=== PATIENT | female | born 1990 | race Two or more races ===

== ENCOUNTER 2019-10-10 14:26 | Emergency (ER) | payer MEDICAID, OTHER ==
[2019-10-10 14:44] LABS: Urine WBC None Seen /hpf (0 - 5)
[2019-10-10 15:07] LABS: Basophils # (auto) 0.1 10 ^3/uL (0-0.2); Basophils % (auto) 0.6 % (0.0-2.0); Eosinophils # (auto) 0.2 10 ^3/uL (0-0.8); Eosinophils % (auto) 1.8 % (0.0-7.0); Hematocrit 42.9 % (36.0-46.0); Hemoglobin 14.4 g/dL (12.2-16.2); Lymphocytes # (auto) 2.7 10 ^3/uL (0.4-5.4); Lymphocytes % (auto) 21.5 % (10.0-50.0); Mean Corpuscular Hemoglobin 28.6 pg (28.0-32.0); Mean Corpuscular Hgb Conc. 33.5 g/dL (32.0-36.0); Mean Corpuscular Volume 85.5 fL (80.0-100.0); Monocytes # (auto) 0.7 10 ^3/uL (0-1.3); Monocytes % (auto) 5.8 % (0.0-12.0); Neutrophils # (auto) 8.9 10 ^3/uL (1.6-8.6); Neutrophils % (auto) 70.3 % (37.0-80.0); Nucleated Red Blood Cells % 0.1 %; Platelet Count (auto) 317 10^3/uL (140-450); Red Blood Cells 5.02 10^6/uL (4.0-5.20); Red Cell Distribution Width 13.2 % (11.8-14.3); White Blood Cell 12.7 10^3/uL (4.4-10.8)
[2019-10-10 15:13] LABS: Urine Bacteria FEW /hpf (None Seen); Urine Blood Negative /uL (Negative); Urine Specific Gravity 1.027 (1.001-1.035)
[2019-10-10 15:42] LABS: Albumin 3.8 g/dL (3.4-5.0); Calcium 8.6 mg/dL (8.5-10.1); Potassium 3.9 mmol/L (3.5-5.1)
[2019-10-10 15:46] LABS: BUN/Creatinine Ratio 14.5; Bilirubin, Total 0.9 mg/dL (0.2-1.0); Total Protein 7.8 g/dL (6.4-8.2)
[2019-10-10] MEDS ORDERED: SODIUM CHLORIDE 0.9% 1,000 ML IVB ONE (16:00)
[2019-10-10] MEDS ORDERED: PROMETHAZINE HCL 25 MG/ML 1ML IV PRN (16:00)
[2019-10-10 16:14] LABS: Magnesium 2.2 mg/dL (1.6-2.6)
[2019-10-10] MEDS ORDERED: cefTRIAXone 1GM/50ML D5W 50 ML IV ONE (17:00)
[2019-10-10 17:38] VITALS: BP 121/80
== END 2019-10-10 19:20 | disposition home or self-care (01) ==
LOC: EDBD 14:26 → ER 14:26
DX: K52.9 Noninfective gastroenteritis and colitis, unspecified (principal); N39.0 Urinary tract infection, site not specified
CPT/HCPCS: 36415; 74176; 80053; 81001; 81025; 83690; 83735; 85025; 96361; 96365; 96375; 99284; J0696; J2550; J7030

== ENCOUNTER 2021-10-12 23:22 | Emergency (ER) | payer MEDICAID ==
[~2021-10-12] VITALS: Ht 162.6 cm; Wt 92.1 kg
[2021-10-13 00:56] LABS: Urine Bacteria FEW /hpf (None Seen); Urine Blood 3+ /uL (Negative); Urine Hyaline Cast FEW /lpf (0 - 2); Urine Mucus FEW (None Seen); Urine Specific Gravity 1.026 (1.001-1.035); Urine WBC 40 /hpf (0 - 5)
[2021-10-13 02:27] LABS: Basophils # (auto) 0 10 ^3/uL (0-0.2); Basophils % (auto) 0.3 % (0.0-2.0); Eosinophils # (auto) 0.2 10 ^3/uL (0-0.8); Eosinophils % (auto) 1.8 % (0.0-7.0); Hematocrit 38.9 % (36.0-46.0); Hemoglobin 13.2 g/dL (12.2-16.2); Lymphocytes # (auto) 3.1 10 ^3/uL (0.4-5.4); Mean Corpuscular Hemoglobin 29.1 pg (28.0-32.0); Mean Corpuscular Hgb Conc. 33.9 g/dL (32.0-36.0); Mean Corpuscular Volume 85.8 fL (80.0-100.0); Monocytes # (auto) 0.8 10 ^3/uL (0-1.3); Monocytes % (auto) 7.3 % (0.0-12.0); Neutrophils # (auto) 6.3 10 ^3/uL (1.6-8.6); Neutrophils % (auto) 60.6 % (37.0-80.0); Red Blood Cells 4.53 10^6/uL (4.0-5.20); Red Cell Distribution Width 13.2 % (11.8-14.3); White Blood Cell 10.5 10^3/uL (4.4-10.8)
[2021-10-13 02:38] LABS: Albumin 3.5 g/dL (3.4-5.0); Calcium 8.9 mg/dL (8.5-10.1); Potassium 3.8 mmol/L (3.5-5.1)
[2021-10-13 02:41] LABS: Bilirubin, Total 0.7 mg/dL (0.2-1.0)
[2021-10-13 03:38] VITALS: BP 145/90
== END 2021-10-13 03:09 | disposition admitted as inpatient to this hospital (09) ==
LOC: ER 23:22
DX: R10.32 Left lower quadrant pain (principal)
CPT/HCPCS: 36415; 74176; 80053; 81001; 84702; 85025

== ENCOUNTER 2021-11-27 07:49 | Emergency (ER) | payer MEDICAID ==
[~2021-11-27] VITALS: Ht 162.6 cm; Wt 90.7 kg
[2021-11-27 09:34] LABS: Basophils # (auto) 0 10 ^3/uL (0-0.2); Basophils % (auto) 0.5 % (0.0-2.0); Eosinophils # (auto) 0.2 10 ^3/uL (0-0.8); Eosinophils % (auto) 3.8 % (0.0-7.0); Hematocrit 39.4 % (36.0-46.0); Hemoglobin 13.8 g/dL (12.2-16.2); Lymphocytes # (auto) 1.1 10 ^3/uL (0.4-5.4); Lymphocytes % (auto) 18.1 % (10.0-50.0); Mean Corpuscular Hemoglobin 29.7 pg (28.0-32.0); Mean Corpuscular Hgb Conc. 35.1 g/dL (32.0-36.0); Mean Corpuscular Volume 84.6 fL (80.0-100.0); Monocytes # (auto) 0.8 10 ^3/uL (0-1.3); Monocytes % (auto) 12.5 % (0.0-12.0); Neutrophils % (auto) 65.1 % (37.0-80.0); Nucleated Red Blood Cells % 0.1 %; Red Blood Cells 4.66 10^6/uL (4.0-5.20); Red Cell Distribution Width 13.2 % (11.8-14.3); White Blood Cell 6.1 10^3/uL (4.4-10.8)
[2021-11-27 09:46] LABS: Urine Bacteria NONE SEEN /hpf (None Seen); Urine Blood Negative /uL (Negative); Urine Specific Gravity 1.029 (1.001-1.035); Urine WBC <1 /hpf (0 - 5)
[2021-11-27 09:49] LABS: Albumin 3.7 g/dL (3.4-5.0); Calcium 8.6 mg/dL (8.5-10.1); Potassium 4.4 mmol/L (3.5-5.1)
[2021-11-27 09:53] LABS: BUN/Creatinine Ratio 15.1; Bilirubin, Total 0.8 mg/dL (0.2-1.0); Total Protein 7.5 g/dL (6.4-8.2)
[2021-11-27] MEDS ORDERED: PANT40TA2 PO (10:23)
[2021-11-27] MEDS ORDERED: CIPR-173 PO (10:23)
[2021-11-27] MEDS ORDERED: ONDA-144 PO (10:23)
[2021-11-27 11:45] VITALS: BP 118/62
== END 2021-11-27 12:28 | disposition home or self-care (01) ==
LOC: ER 07:49
DX: K29.70 Gastritis, unspecified, without bleeding (principal); Z79.899 Other long term (current) drug therapy; Z79.2 Long term (current) use of antibiotics
CPT/HCPCS: 36415; 74176; 80053; 81001; 83690; 85025

== ENCOUNTER 2022-01-17 20:50 | Emergency (ER) | payer MEDICAID ==
[~2022-01-17] VITALS: Ht 162.6 cm; Wt 100.0 kg
[~2022-01-17 20:50] MED LIST: CIPR-173 PO; ONDA-144 PO; PANT40TA2 PO
[2022-01-17 23:05] VITALS: BP 143/97
[2022-01-18] MEDS ORDERED: CLINDAMYCIN HCL 150 MG CAP PO ONE (03:45)
[2022-01-18] MEDS ORDERED: CLIN150C8 PO (03:46)
== END 2022-01-18 04:14 | disposition home or self-care (01) ==
LOC: ER 20:50
DX: S70.361A Insect bite (nonvenomous), right thigh, initial encounter (principal); L03.115 Cellulitis of right lower limb; Z79.2 Long term (current) use of antibiotics; Z79.899 Other long term (current) drug therapy; W57.XXXA Bitten or stung by nonvenomous insect and other nonvenomous arthropods, initial encounter; Y93.89 Activity, other specified; Y92.89 Other specified places as the place of occurrence of the external cause; Y99.8 Other external cause status
CPT/HCPCS: 73700

== ENCOUNTER 2022-12-18 22:04 | Emergency (ER) | payer MEDICAID ==
[~2022-12-18] VITALS: Ht 157.5 cm; Wt 95.6 kg
[~2022-12-18 22:04] MED LIST changes: +CLIN150C18 PO
[2022-12-18 22:46] LABS: Basophils # (auto) 0.1 10 ^3/uL (0-0.2); Basophils % (auto) 0.5 % (0.0-2.0); Eosinophils # (auto) 0.2 10 ^3/uL (0-0.8); Eosinophils % (auto) 1.9 % (0.0-7.0); Hematocrit 39.2 % (36.0-46.0); Hemoglobin 13.3 g/dL (12.2-16.2); Lymphocytes # (auto) 3.9 10 ^3/uL (0.4-5.4); Lymphocytes % (auto) 31.1 % (10.0-50.0); Mean Corpuscular Hemoglobin 28.8 pg (28.0-32.0); Mean Corpuscular Volume 84.7 fL (80.0-100.0); Monocytes # (auto) 0.6 10 ^3/uL (0-1.3); Monocytes % (auto) 4.9 % (0.0-12.0); Neutrophils # (auto) 7.7 10 ^3/uL (1.6-8.6); Neutrophils % (auto) 61.6 % (37.0-80.0); Red Blood Cells 4.63 10^6/uL (4.0-5.20); Red Cell Distribution Width 12.9 % (11.8-14.3); White Blood Cell 12.6 10^3/uL (4.4-10.8)
[2022-12-18 23:05] LABS: Urine Bacteria NONE SEEN /hpf (None Seen); Urine Blood Negative /uL (Negative); Urine Specific Gravity 1.023 (1.001-1.035); Urine WBC 2 /hpf (0 - 5)
[2022-12-18 23:16] LABS: Albumin 3.8 g/dL (3.4-5.0); Calcium 8.3 mg/dL (8.5-10.1); Potassium 3.7 mmol/L (3.5-5.1)
[2022-12-18 23:18] LABS: BUN/Creatinine Ratio 17.4 (10.0-20.0)
[2022-12-18 23:20] LABS: Bilirubin, Total 0.8 mg/dL (0.2-1.0); Total Protein 7.4 g/dL (6.4-8.2)
[2022-12-19] MEDS ORDERED: IOHEXOL 350 MG/ML 100ML IJ ONE (00:19)
[2022-12-19] MEDS ORDERED: PERCOT PO (04:32)
[2022-12-19] MEDS ORDERED: CIPR-173 PO (04:32)
[2022-12-19] MEDS ORDERED: ZOFR4T PO (04:32)
[2022-12-19 04:49] VITALS: BP 143/98
== END 2022-12-19 04:58 | disposition home or self-care (01) ==
LOC: ER 22:04
DX: K52.9 Noninfective gastroenteritis and colitis, unspecified (principal); Z98.890 Other specified postprocedural states; Z79.899 Other long term (current) drug therapy
CPT/HCPCS: 36415; 74177; 80053; 81001; 83690; 85025; 99285; Q9967

== ENCOUNTER 2023-07-13 19:22 | Emergency (ER) | payer MEDICAID ==
[~2023-07-13] VITALS: Ht 162.6 cm; Wt 94.5 kg
[~2023-07-13 19:22] MED LIST changes: +PERCOT PO; +ZOFR4T PO
[2023-07-13] MEDS ORDERED: KETOROLAC TROMETH 60MG/2ML VIAL IM ONE (22:30)
[2023-07-13] MEDS ORDERED: HYDROcodone-ACET 5/325MG TAB PO ONE (22:30)
[2023-07-13] MEDS ORDERED: HYDR-4902 PO (22:30)
[2023-07-13] MEDS ORDERED: DexAMETHasone SOD PHOS 10MG/1ML VIAL INJ IM ONE (22:30)
[2023-07-13 23:24] VITALS: BP 132/84; PULSE 89; RESP 16; TEMP 98; O2SAT 97
== END 2023-07-13 22:27 | disposition home or self-care (01) ==
LOC: ER 19:22
DX: G56.01 Carpal tunnel syndrome, right upper limb (principal); M65.4 Radial styloid tenosynovitis [de Quervain]; Z79.2 Long term (current) use of antibiotics; Z79.899 Other long term (current) drug therapy
CPT/HCPCS: 29125; 73110; 96372; 99284; J1100; J1885

== ENCOUNTER 2023-10-16 18:12 | Emergency (ER) | payer MEDICAID ==
[~2023-10-16] VITALS: Ht 162.6 cm; Wt 95.7 kg
[~2023-10-16 18:12] MED LIST changes: +HYDR-4902 PO
[2023-10-16 19:21] VITALS: BP 138/98; PULSE 86; RESP 16; TEMP 98.7; O2SAT 98
[2023-10-16] MEDS ORDERED: BACDST PO (19:51)
[2023-10-16] MEDS ORDERED: CLIN-203 PO (19:51)
[2023-10-16] MEDS ORDERED: MUPI2OIN2 EX (19:51)
[2023-10-16] MEDS: NEOMYCIN-BACITRACIN-POLYM UNITDOSE PKG TOP OINT TOP ONE (20:00)
[2023-10-16] MEDS: CLINDAMYCIN 900MG IV 50 ML IV ONE (20:07)
== END 2023-10-16 23:42 | disposition home or self-care (01) ==
LOC: ER 18:12
DX: N61.1 Abscess of the breast and nipple (principal); N64.4 Mastodynia
CPT/HCPCS: 96365; 99284; J3490

== ENCOUNTER 2024-02-16 17:41 | Emergency (ER) | payer MEDICAID ==
[~2024-02-16] VITALS: Ht 162.6 cm; Wt 97.0 kg
[~2024-02-16 17:41] MED LIST changes: +BACDST PO; +CLIN-203 PO; +MUPI2OIN2 EX
[2024-02-16 18:17] LABS: Basophils # (auto) 0.1 10 ^3/uL (0-0.2); Basophils % (auto) 0.4 % (0.0-2.0); Eosinophils # (auto) 0.2 10 ^3/uL (0-0.8); Eosinophils % (auto) 1.3 % (0.0-7.0); Hemoglobin 14.8 g/dL (12.2-16.2); Lymphocytes # (auto) 3.3 10 ^3/uL (0.4-5.4); Lymphocytes % (auto) 24.7 % (10.0-50.0); Mean Corpuscular Hemoglobin 28.8 pg (28.0-32.0); Mean Corpuscular Hgb Conc. 34.4 g/dL (32.0-36.0); Mean Corpuscular Volume 83.8 fL (80.0-100.0); Monocytes # (auto) 0.6 10 ^3/uL (0-1.3); Monocytes % (auto) 4.5 % (0.0-12.0); Neutrophils # (auto) 9.3 10 ^3/uL (1.6-8.6); Neutrophils % (auto) 69.1 % (37.0-80.0); Nucleated Red Blood Cells % 0.1 %; Platelet Count (auto) 346 10^3/uL (140-450); Red Blood Cells 5.12 10^6/uL (4.0-5.20); Red Cell Distribution Width 13.3 % (11.8-14.3); White Blood Cell 13.4 10^3/uL (4.4-10.8)
[2024-02-16 18:34] LABS: INR 1.01 (0.9-1.15); Prothrombin Time 10.7 sec (9.3-11.8)
[2024-02-16 18:37] LABS: Alanine Aminotransferase 20 U/L (7-40); Albumin 4.6 g/dL (3.2-4.8); Alkaline Phosphatase 101 U/L (46-116); Anion Gap 8 (5-15); Aspartate Aminotransferase < 8 U/L (13-40); BUN/Creatinine Ratio 9.2 (10.0-20.0); Bilirubin, Total 1.1 mg/dL (0.2-1.0); Blood Urea Nitrogen 8 mg/dL (9-23); Calcium 10.2 mg/dL (8.7-10.4); Carbon Dioxide 25 mmol/L (20-30); Chloride 107 mmol/L (98-107); Glucose 100 mg/dL (74-106); Potassium 3.6 mmol/L (3.5-5.1); Sodium 140 mmol/L (136-145); Total Protein 7.6 g/dL (5.7-8.2)
[2024-02-17 01:04] VITALS: BP 149/95; PULSE 85; RESP 16; O2SAT 98
== END 2024-02-17 01:05 | disposition home or self-care (01) ==
LOC: ER 17:41
DX: R07.89 Other chest pain (principal); R20.2 Paresthesia of skin; I10 Essential (primary) hypertension; Z98.890 Other specified postprocedural states; Z79.899 Other long term (current) drug therapy
CPT/HCPCS: 36415; 71045; 80053; 84484; 85025; 85610; 85730; 93005